=== PATIENT | male | born 1970 | race Caucasian/White ===

== ENCOUNTER 2024-01-03 09:18 | Outpatient (CLI) | payer MEDICAID | END 2024-01-03 23:59 | disposition home or self-care (01) | LOC: RAD 09:18 | PROVIDERS: ATTEND General Practice | DX: J43.2 Centrilobular emphysema (principal); N28.1 Cyst of kidney, acquired; R63.4 Abnormal weight loss; R11.0 Nausea; K21.9 Gastro-esophageal reflux disease without esophagitis; M16.0 Bilateral primary osteoarthritis of hip; M25.851 Other specified joint disorders, right hip; M25.852 Other specified joint disorders, left hip; M47.816 Spondylosis without myelopathy or radiculopathy, lumbar region; M48.061 Spinal stenosis, lumbar region without neurogenic claudication; F17.210 Nicotine dependence, cigarettes, uncomplicated | CPT/HCPCS: 71271; 74176 ==